=== PATIENT | female | born 1990 | race Caucasian/White ===

== ENCOUNTER 2024-02-27 05:57 | Emergency (ER) | payer OTHER, SELFPAY ==
[2024-02-27 06:08] VITALS: BP 122/69; PULSE 114; RESP 18; TEMP 36.9; O2SAT 93; BMI 25.0
--- NOTE | 2024-02-27 06:21 | CRLHL7_ITS ---
For Patients: As a result of the Century Cures Act, medical imaging exams and procedure reports are released immediately into your electronic medical record. You may view this report before your referring provider. If you have questions, please contact your health care provider. Indication: Shortness of breath. Technique: Two view(s) of the chest. Comparison: 05/14/2019. Findings: Normal cardiomediastinal silhouette and pulmonary vasculature. Lungs are well inflated. Nodular opacity in the right lower lung measures approximately 9 mm, more conspicuous than prior. Otherwise, no focal consolidation, pleural effusion or pneumothorax. No acute osseous abnormality. Impression: 1. No acute cardiopulmonary abnormality identified. 2. Subtle nodular opacity in the right lung base is favored to represent a nipple shadow; however, is more pronounced compared to prior. Recommend nonemergent repeat chest radiograph with nipple marker. Dictated by Anitha Lacey MD @ 02/27/2024 6:47:28 AM (Electronically Signed)
[2024-02-27 06:48] LABS: PCR FLU A Negative PCR FLU A (Negative); PCR FLU B Negative PCR FLU B (Negative); PCR RSV Negative PCR RSV (Negative); SARS PCR* Negative SARS-CoV-2 (Negative)
--- NOTE | 2024-02-27 06:55 | ED_ITS ---
HPI - General Adult General Chief complaint: Cough Stated complaint: Hard to breathe, headache, cough, congestion Time Seen by Provider: 02/27/24 06:21 History of Present Illness HPI narrative: PATIENT IS A 34-YEAR-OLD WOMAN COMES IN 24 HISTORY GENERAL MALAISE BODY ACHES FATIGUE NONPRODUCTIVE COUGH. SHE HAS HAD NO RECENT SICK CONTACTS. SHE HAS HAD NO CHEST PAIN NO SIGNIFICANT SHORTNESS OF BREATH NO NAUSEA NO VOMITING NO FEVERS NO CHILLS. Related Data Home Medications ?Medication ?Instructions ?Recorded ?Confirmed escitalopram oxalate 5 mg tablet 5 mg PO QDAY 05/04/22 05/04/22 (Lexapro) phentermine 37.5 mg tablet 18.75 mg PO QAM 02/27/24 02/27/24 Allergies Allergy/AdvReac Type Severity Reaction Status Date / Time No Known Drug Allergies Allergy Verified 05/04/22 09:20 Review of Systems Status of ROS: Reports: 10 or more systems reviewed and unremarkable except as noted in History and below [facility] Social History Smoking Status: Never smoker Exam Narrative: Exam Narrative: EXAM GENERAL: Patient appears comfortable and well. EYES: No scleral icterus. ENT: Tympanic membranes and oropharynx normal. THYROID: no thyroid nodules or thyromegaly. LYMPH: No supraclavicular or cervical lymphadenopathy. SKIN: Visible skin seen during exam normal or with benign process only. EXT: No dependent lower extremity pedal edema. HEART: Regular rate and rhythm with no murmurs, rubs, or gallops. LUNGS: Clear to auscultation bilaterally with no crackles or wheezes. ABD: Soft, non tender, non distended. PSYCH: Good eye contact, speech is not pressured. Const: Vital Signs, click to edit/add: Vital Signs - 24 hr 02/27/24 06:08 Temperature 98.5 F Pulse Rate [Pulse Oximeter] 114 H Respiratory Rate 18 Blood Pressure [Ri ght Upper Arm] 122/69 Pulse Oximetry 93 Oxygen Delivery Me thod Room Air Course Course ED Course: Patient seen and examined. Triple swab and chest x-ray ordered. Vital Signs Vital signs: Initial Vital Signs Respiratory Effort Normal 02/27/24 06:02 Respiratory Depth Normal 02/27/24 06:02 Respiratory Pattern Normal 02/27/24 06:02 Vital Signs Temperature 98.5 F 02/27/24 06:08 Pulse Rate 114 H 02/27/24 06:08 Respiratory Rate 18 02/27/24 06:08 Blood Pressure 122/69 02/27/24 06:08 Pulse Oximetry 93 02/27/24 06:08 Oxygen Delivery Method Room Air 02/27/24 06:08 Temperature 98.5 F 02/27/24 06:08 Pulse Rate 114 H 02/27/24 06:08 Respiratory Rate 18 02/27/24 06:08 Blood Pressure 122/69 02/27/24 06:08 Pulse Oximetry 93 02/27/24 06:08 Oxygen Delivery Method Room Air 02/27/24 06:08 Medical Decision Making MDM Narrative Medical decision making narrative: Patient presents with symptoms of viral URI triple swab is negative chest x-ray is unremarkable upon my review. This point differential diagnosis includes but not limited to pneumonia COVID-19 influenza RSV viral syndrome bronchitis congestive heart failure pulmonary embolism unstable angina. Given her constellation of symptoms I did favor viral syndrome with current workup and recommend rotation of Tylenol Motrin rest fluids and follow-up with primary physician as needed. Lab Data Labs: Lab Results 02/27/24 Range/Units 06:03 SARS-CoV-2 (PCR) Negative SARS-CoV-2 (Negative) Influenza Type A (PCR) Negative PCR FLU A (Negative) Influenza Type B (PCR) Negative PCR FLU B (Negative) RSV (PCR) Negative PCR RSV (Negative) Discharge Plan Discharge Clinical Impression: Acute viral syndrome Patient Disposition: Home, Self-Care Condition: Stable Instructions: Viral Syndrome (ED) Additional Instructions: Tylenol Motrin Rest Fluids Activity Level: No Restrictions Discharge Diet: Regular Prescriptions: No Action escitalopram oxalate [Lexapro] 5 mg tablet 5 mg PO QDAY phentermine 37.5 mg tablet 18.75 mg PO QAM Follow Up/Referrals: Provider,Not a Local [Primary Care Provider] - Stand Alone Forms: [employer] Info Instructions
== END 2024-02-27 07:03 | disposition home or self-care (01) ==
PROVIDERS: Emergency Provider Internal Medicine
DX: B34.9 Viral infection, unspecified (principal)
CPT/HCPCS: 71046; 87631; 99283